=== PATIENT | female | born 1950 | race Caucasian/White ===

== ENCOUNTER 2017-11-10 05:48 | Emergency (ER) | payer OTHER ==
[~2017-11-10] VITALS: Ht 160 cm; Wt 99.9 kg
[~2017-11-10 05:48] MED LIST: ATENOLOL25 M1 PO; BENICAR40 MG PO; COUMADIN,JANTO2.5 MG PO; CYMBALTA60 MG PO; Cymbalta PO; FOLIC ACID1 MG PO; GLUCOPHAGE500 MG PO; HUMULIN R100 UNITS/; KLOR-CON M2020 MEQ PO; LAMICTAL100 MG PO; LANTUS 3 M100 UNITS/ SC; LANTUS100 UNIT/1 SQ; LASIX20 MG PO; LIPITOR40 MG PO; LaMICtal PO; NEURONTIN100 MG PO; NEURONTIN300 MG PO; PEPCID40 MG PO; VITAMIN B-121000 MCG PO; VITAMIN B12-FO1 EACH PO; XANAX0.5 MG PO
[2017-11-10 06:43] LABS: HEMOGLOBIN 13.4 G/DL (11.9-15.5); MCHC 33.5 G/DL (30.0-36.0); MCV 83.5 FL (83-99); PLATELET COUNT 285 K/uL (156-360); RBC DIS.WIDTH-CV 13.6 % (11.8-14.6); RBC DIS.WIDTH-SD 41.9 % (39-53); RED BLOOD COUNT 4.79 M/uL (3.80-5.20); WHITE BLOOD COUNT 14.4 K/uL (4.1-10.2)
[2017-11-10 07:08] LABS: CHLORIDE 102 MEQ/L (99-109); POTASSIUM 4.2 MEQ/L (3.7-5.4); SODIUM 137 MEQ/L (136-147)
[2017-11-10 07:13] LABS: GFR ESTIMATE (CALCULATED) > 59 mL/min/; GLUCOSE 233 mg/dL (70-99); UREA NITROGEN (BUN) 14 mg/dL (9-23)
[2017-11-10 07:21] LABS: ERTH.SED.RATE 34 MM/HR (0-30)
[2017-11-10 07:42] LABS: INTER. NORMALIZED RATIO 2.3
[2017-11-10] MEDS ORDERED: FLEXERIL10 MG PO (09:49)
[2017-11-10 11:03] VITALS: BP 150/83
== END 2017-11-10 11:05 | disposition home or self-care (01) ==
LOC: EME 05:48
PROVIDERS: Emergency Medicine
DX: M47.26 Other spondylosis with radiculopathy, lumbar region (principal); M48.061 Spinal stenosis, lumbar region without neurogenic claudication; K21.9 Gastro-esophageal reflux disease without esophagitis; I10 Essential (primary) hypertension; F41.9 Anxiety disorder, unspecified; E78.5 Hyperlipidemia, unspecified; F32.9 Major depressive disorder, single episode, unspecified; Z90.710 Acquired absence of both cervix and uterus; Z79.4 Long term (current) use of insulin; Z79.01 Long term (current) use of anticoagulants
CPT/HCPCS: 72158; 80048; 85027; 85610; 85652; J2060; J2270